=== PATIENT | male | born 1985 | race Two or more races ===

== ENCOUNTER 2023-02-19 13:23 | Emergency (ER) | payer OTHER ==
[~2023-02-19] VITALS: Ht 175.3 cm; Wt 113.6 kg
[2023-02-19 14:40] VITALS: BP 143/82
[2023-02-19] MEDS ORDERED: ACETAMINOPHEN 500 MG TAB PO STA (15:40)
[2023-02-19] MEDS ORDERED: HYDROcodone-ACET 5/325MG TAB PO STA (17:32)
[2023-02-19] MEDS ORDERED: TETANUS-DIPTH-ACEL PERTUSSIS 0.5ML SYR Tdap IM ONE (17:45)
[2023-02-19] MEDS ORDERED: HYDR-4902 PO (17:46)
[2023-02-19] MEDS ORDERED: CEPH500C PO (17:52)
== END 2023-02-19 17:56 | disposition home or self-care (01) ==
LOC: EDBD 13:23 → ER 13:23
DX: S01.81XA Laceration without foreign body of other part of head, initial encounter (principal); W01.198A Fall on same level from slipping, tripping and stumbling with subsequent striking against other object, initial encounter; Y93.89 Activity, other specified; Y92.89 Other specified places as the place of occurrence of the external cause; Y99.8 Other external cause status
CPT/HCPCS: 12015; 70450; 90471; 90715

== ENCOUNTER 2023-02-26 11:13 | Emergency (ER) | payer OTHER ==
[~2023-02-26] VITALS: Ht 175.3 cm; Wt 116.6 kg
[~2023-02-26 11:13] MED LIST: CEPH500C PO; HYDR-4902 PO
[2023-02-26 13:17] VITALS: BP 133/94
== END 2023-02-26 14:28 | disposition home or self-care (01) ==
LOC: ER 11:13
DX: S01.81XD Laceration without foreign body of other part of head, subsequent encounter (principal); Z79.899 Other long term (current) drug therapy; X58.XXXD Exposure to other specified factors, subsequent encounter

== ENCOUNTER 2023-03-01 11:54 | Emergency (ER) | payer OTHER ==
[~2023-03-01] VITALS: Ht 175.3 cm; Wt 113.0 kg
[2023-03-01 13:17] VITALS: BP 142/87
== END 2023-03-01 13:34 | disposition home or self-care (01) ==
LOC: ER 11:54
DX: S01.01XD Laceration without foreign body of scalp, subsequent encounter (principal); S01.81XD Laceration without foreign body of other part of head, subsequent encounter; X58.XXXD Exposure to other specified factors, subsequent encounter